=== PATIENT | female | born 1955 | race Caucasian/White ===

== ENCOUNTER 2019-11-04 12:22 | Inpatient (IN) | payer OTHER ==
[2019-11-04 13:11] LABS: Basophils % (A) 0 %; Eosinophils # (A) 0.2 k/uL (0-0.7); Eosinophils % (A) 4 %; HCT 40.8 % (34.0-46.0); HGB 14.2 gm/dL (11.4-16.0); Lymphocytes # (A) 1.9 k/uL (1.0-4.8); Lymphocytes % (A) 31 %; MCH 31.1 pg (25.0-35.0); MCHC 34.9 g/dL (31.0-37.0); MCV 89.3 fL (80.0-100.0); Monocytes # (A) 0.3 k/uL (0-1.0); Monocytes % (A) 6 %; Neutrophils # (A) 3.4 k/uL (1.3-7.7); Neutrophils % (A) 57 %; Platelet Count 243 k/uL (150-450); RBC 4.56 m/uL (3.80-5.40); RDW 13.1 % (11.5-15.5)
--- NOTE | 2019-11-04 13:13 | XR ---
EXAMINATION TYPE: XR forearm LT , 2 VIEWS DATE OF EXAM ORDERED: 11/04/2019 HISTORY: dog bite, infection. COMPARISON: None. FINDINGS: No fracture, dislocation or radiopaque foreign body is seen. IMPRESSION: NORMAL RADIUS AND ULNA.
--- NOTE | 2019-11-04 13:16 | ED ---
General Adult HPI - General Chief complaint: Recheck/Abnormal Lab/Rx Stated complaint: dog bite lt arm Time Seen by Provider: 11/04/19 12:33 Source: patient, RN notes reviewed Mode of arrival: ambulatory Limitations: no limitations - History of Present Illness Initial comments: This a 64-year-old female presents emergency Department with chief complaint of left forearm infection. Patient states she was bit by her dog on Wednesday was seen in emergency department was placed on clindamycin and doxycycline. Patient states she had it washed out. Patient is up-to-date on his tetanus, vaccinated. Patient states that 2 other areas have been improving though there is a larger wound just distal to her left elbow which has been increasing pain, swelling or redness. She states his been diffuse drainage from the site. She's had fevers and off. Patient states that she also has been applying Neosporin to the area. - Related Data Allergies Allergy/AdvReac Type Severity Reaction Status Date / Time Penicillins Allergy Rash/Hives Verified 11/04/19 12:31 Review of Systems ROS Statement: Those systems with pertinent positive or pertinent negative responses have been documented in the HPI. ROS Other: All systems not noted in ROS Statement are negative. Past Medical History Past Medical History: No Reported History History of Any Multi-Drug Resistant Organisms: None Reported Past Surgical History: Appendectomy, Cholecystectomy Past Psychological History: No Psychological Hx Reported Smoking Status: Never smoker Past Alcohol Use History: Occasional Past Drug Use History: None Reported General Exam Limitations: no limitations General appearance: alert, in no apparent distress Head exam: Present: atraumatic, normocephalic, normal inspection Eye exam: Present: normal appearance, PERRL, EOMI. Absent: scleral icterus, co njunctival injection, periorbital swelling Respiratory exam: Present: normal lung sounds bilaterally. Absent: respiratory distress, wheezes, rales, rhonchi, stridor Cardiovascular Exam: Present: regular rate, normal rhythm, normal heart sounds. Absent: systolic murmur, diastolic murmur, rubs, gallop, clicks Extremities exam: Present: other (Left arm just distal to the elbow there is approximately a 2 cm open wound with surrounding 6 cm area of erythema, severe times with palpation there is no pain or swelling proximal to the left elbow, there are 2 healing wounds noted with some ecchymosis radial pulses equal bilate rally) Neurological exam: Present: alert, oriented X3 Skin exam: Present: warm, dry, intact, normal color. Absent: rash Course Vital Signs 11/04/19 12:24 Temperature 98.7 F Pulse Rate 75 Respiratory 18 Rate Blood Pressure 131/74 O2 Sat by Pulse 97 Oximetry Medical Decision Making - Medical Decision Making This a 64-year-old female presented for left arm and by infection. The symptoms are worsening even after clindamycin and doxycycline Patient will be admitted for IV antibiotics and further management. - Lab Data Result diagrams: 11/04/19 12:58 11/04/19 12:58 Lab Results 11/04/19 11/04/19 11/04/19 Range/Units 12:58 12:58 12:58 WBC 6.0 (3.8-10.6) k/uL RBC 4.56 (3.80-5.40) m/uL Hgb 14.2 (11.4-16.0) gm/dL Hct 40.8 (34.0-46.0) % MCV 89.3 (80.0-100.0) fL MCH 31.1 (25.0-35.0) pg MCHC 34.9 (31.0-37.0) g/dL RDW 13.1 (11.5-15.5) % Plt Count 243 (150-450) k/uL Neutrophils % 57 % Lymphocytes % 31 % Monocytes % 6 % Eosinophils % 4 % Basophils % 0 % Neutrophils # 3.4 (1.3-7.7) k/uL Lymphocytes # 1.9 (1.0-4.8) k/uL Monocytes # 0.3 (0-1.0) k/uL Eosinophils # 0.2 (0-0.7) k/uL Basophils # 0.0 (0-0.2) k/uL Sodium 139 (137-145) mmol/L Potassium 4.2 (3.5-5.1) mmol/L Chloride 107 (98-107) mmol/L Carbon Dioxide 23 (22-30) mmol/L Anion Gap 9 mmol/L BUN 18 H (7-17) mg/dL Creatinine 0.91 (0.52-1.04) mg/dL Est GFR (CKD-EPI)AfAm 78 (>60 ml/min/1.73 sqM) Est GFR (CKD-EPI)NonAf 67 (>60 ml/min/1.73 sqM) Glucose 107 H (74-99) mg/dL Plasma Lactic Acid Olegario 1.3 (0.7-2.0) mmol/L Calcium 9.5 (8.4-10.2) mg/dL Total Bilirubin 0.6 (0.2-1.3) mg/dL AST 20 (14-36) U/L ALT 16 (4-34) U/L Alkaline Phosphatase 68 (38-126) U/L Total Protein 7.7 (6.3-8.2) g/dL Albumin 4.0 (3.5-5.0) g/dL Disposition Clinical Impression: Dog bite of left forearm with infection, Failure of outpatient treatment Disposition: ADMITTED IP TO THIS HOSP Condition: Fair Referrals: None,Stated [Primary Care Provider] - 1-2 days
[2019-11-04 13:19] LABS: Calcium 9.5 mg/dL (8.4-10.2); Potassium 4.2 mmol/L (3.5-5.1); Total Bilirubin 0.6 mg/dL (0.2-1.3); Total Protein 7.7 g/dL (6.3-8.2)
[2019-11-04] MEDS ORDERED: metroNIDAZOLE-NS PMX 500 MG in SALINE 1 100ML.BAG IVPB STA (13:54)
[2019-11-04] MEDS ORDERED: NALOXONE 0.4 MG/ML 1 ML VIAL IV PRN (13:55)
[2019-11-04] MEDS ORDERED: HYDROcodone/APAP 5-325MG 1 EACH TAB PO PRN (13:55)
[2019-11-04] MEDS ORDERED: ACETAMINOPHEN TAB 325 MG TAB PO PRN (13:55)
[2019-11-04] MEDS: SODIUM CHLORIDE 0.9% 1,000 ML IV SCH (14:40)
[2019-11-04] MEDS ORDERED: TEMAZEPAM 15 MG CAP PO PRN (17:43)
[2019-11-04] MEDS ORDERED: ALPRAZolam 0.25 MG TAB PO PRN (17:43)
[2019-11-04] MEDS ORDERED: HYDROmorphone 0.5 MG/0.5 ML SYRINGE IVP PRN (17:43)
[2019-11-04] MEDS ORDERED: CLOBETASOL PROP 0.05% CR 15GM TOPICAL SCH (17:45)
--- NOTE | 2019-11-04 19:23 | HP ---
HISTORY AND PHYSICAL DATE OF SERVICE: 11/04/2019 CHIEF COMPLAINTS: Pain and swelling of the left forearm and dog bite. HISTORY OF PRESENT ILLNESS: This 64-year-old woman with a past medical history of multiple medical problems including history of appendectomy, cholecystectomy, being followed by primary physician in [place], visiting family here. The patient apparently was trying to feed her dog and another dog jumped and bit her left forearm on multiple occasions. The patient went urgent care center. The patient apparently had multiple p.o. medications including clindamycin, doxycycline. Because of lack of improvement, the patient came yesterday and the patient admitted further evaluation and treatment. There is no history of fever, rigors. No headache, loss of consciousness or seizures. PAST MEDICAL HISTORY: Appendectomy, cholecystectomy. HOME MEDICATION: 1. Clindamycin 300 mg p.o. b.i.d. 2. Calcium 600 mg daily. 3. Temovate 1 p.r.n. 4. Multivitamins 1 p.o. daily. 5. Doxycycline 100 mg p.o. b.i.d. ALLERGIES: KIWI, PENICILLIN, rashes. FAMILY HISTORY: History of diabetes in the family. SOCIAL HISTORY: No history of smoking. Occasional alcohol. REVIEW OF SYSTEMS: ENT: No diminished vision. No diminished hearing. CARDIOVASCULAR: No angina or palpitations. RESPIRATIONS: No cough or hemoptysis. GI no nausea or vomiting. no dysuria or hematuria. NERVOUS SYSTEM: No numbness or weakness. ALLERGY/IMMUNOLOGY: No asthma or hayfever. MUSCULOSKELETAL as mentioned earlier. HEMATOLOGY/ONCOLOGY: No history of anemia. ENDOCRINE: No history of diabetes or hypothyroidism. CONSTITUTIONAL: As mentioned earlier. DERMATOLOGY mentioned earlier. RHEUMATOLOGY: Negative. PSYCHIATRY: As mentioned earlier. PHYSICAL EXAM: Patient alert and oriented x3. The pulse is 72. Blood pressure 121/77, respiration 18, temperature 99 degrees, pulse ox 97% on room air. HEENT: Conjunctivae normal. Oral mucosa moist. NECK is no jugular venous distention. No carotid bruit. No lymph node enlargement. CARDIOVASCULAR system: S1, S2. No S3, no S4. RESPIRATORY: Breath sounds diminished in the bases. No rhonchi. No crackles. ABDOMEN: Soft. Nontender. LEGS: No edema. No swelling. NERVOUS SYSTEM: Higher functions as mentioned earlier. Moves all four limbs. No focal motor or sensory deficits. Lymphatics: No lymph nodes palpable in the neck, axillae or groin. SKIN: Left forearm has significant dog bite areas and erythema and as well as some induration in the left upper forearm present. JOINTS: No active deforming arthropathy. LABS: CBC within normal limits and glucose 107. ASSESSMENT: 1. Left-sided dog bite with acute cellulitis with failure of outpatient treatment and rule out abscess in the left forearm. 2. History of appendectomy. 3. History of cholecystectomy. 4. FULL CODE. RECOMMENDATIONS AND DISCUSSION: In this 64-year-old woman who presented with multiple complex medical issues, at this time I recommend to continue the current management and continue the IV antibiotics. Infectious disease evaluation. Recommend orthopedic evaluation and I would also recommend a CT scan to rule out the possibility of any abscess formation in the forearm area. Continue to monitor. Resume the home medications. DVT prophylaxis. Pain medications. Further recommendations to follow. MMODL / IJN: [id number] /
[2019-11-04] MEDS: KETOROLAC 30 MG/ML 1 ML VIAL IVP PRN (21:29)
[2019-11-04] MEDS: HEPARIN SODIUM,PORCINE 5,000 UNIT/ML 1 ML VIAL SQ SCH (21:30)
[2019-11-05] MEDS: metroNIDAZOLE-NS PMX 500 MG in SALINE 1 100ML.BAG IVPB SCH ×4 (00:46→23:56)
[2019-11-05] MEDS: SODIUM CHLORIDE 0.9% 1,000 ML IV SCH ×2 (05:33→16:20)
[2019-11-05 06:31] LABS: Basophils % (A) 1 %; Eosinophils # (A) 0.3 k/uL (0-0.7); Eosinophils % (A) 7 %; HCT 37.6 % (34.0-46.0); HGB 12.8 gm/dL (11.4-16.0); Lymphocytes % (A) 44 %; MCH 30.8 pg (25.0-35.0); MCHC 34.1 g/dL (31.0-37.0); MCV 90.4 fL (80.0-100.0); Mean Platelet Volume 7.3; Monocytes # (A) 0.3 k/uL (0-1.0); Monocytes % (A) 6 %; Neutrophils # (A) 1.7 k/uL (1.3-7.7); Neutrophils % (A) 39 %; Platelet Count 207 k/uL (150-450); RBC 4.15 m/uL (3.80-5.40); WBC 4.4 k/uL (3.8-10.6)
[2019-11-05] MEDS: HEPARIN SODIUM,PORCINE 5,000 UNIT/ML 1 ML VIAL SQ SCH ×2 (08:26→21:39)
[2019-11-05] MEDS: CALCIUM CARB-VIT D 500MG-200UN 1 EACH TAB PO SCH (08:27)
[2019-11-05] MEDS: KETOROLAC 30 MG/ML 1 ML VIAL IVP PRN ×2 (08:43→23:55)
[2019-11-05] MEDS: VIT A,C & E-LUTEIN-MINERALS 1 EACH TAB PO SCH (09:41)
--- NOTE | 2019-11-05 11:04 | P.CNOR ---
History of Present Illness - [facility] Consult date: 11/05/19 History of present illness: This patient is a 64-year-old female who is otherwise healthy that presented to [facility] emergency department on 11/04/19 with complaints of forearm swelling and pain. Patient states that she sustained a dog bite on Wednesday. She states it was her own dog and the dog bit her while she was feeding him. She states following the bite, she presented to the emergency department that night for evaluation. The patient lives in [place] and went to a hospital there. Patient states she was placed on clindamycin and doxycycline, her tetanus was also updated. The patient states she traveled to [place], and she began to experience increased swelling, redness, pain, and drainage from the left forearm wound. She was also experiencing intermittent fevers. Therefore, she presented to [facility] emergency department yesterday for evaluation. The patient was admitted under the care of internal medicine with a consult placed to orthopedic surgery and infectious disease. At the time of my exam, the patient states the pain in her left forearm has improved drastically overnight since being started on IV antibiotics. She states she is experiencing very minimal pain in the left elbow and forearm today. She complains of no pain with elbow motion or wrist motion. She states she was experiencing increased drainage from the wound last night. She overall is feeling very well this morning. She denies fevers, chills, nausea, vomiting. She denies numbness or tingling of the left upper extremity. Vital signs stable. Past Medical History Past Medical History: No Reported History History of Any Multi-Drug Resistant Organisms: None Reported Past Surgical History: Appendectomy, Cholecystectomy Additional Past Anesthesia/Blood Transfusion Reaction / Comm: NO HX Past Psychological History: No Psychological Hx Reported Smoking Status: Never smoker Past Alcohol Use History: Occasional Past Drug Use History: None Reported - Past Family History Father History Unknown: Yes Family Medical History: Diabetes Mellitus Mother Family Medical History: Hypertension Medications and Allergies Home Medications Medication Instructions Recorded Confirmed Type C,E,Zinc,Copper 11/Gdwdz7v/Lut 1 tab PO DAILY 11/04/19 11/04/19 History [Ocuvite Adult 50 Plus Softgel] Calcium Carbonate [Calcium] 600 mg PO DAILY 11/04/19 11/04/19 History Clindamycin HCl [Cleocin] 300 mg PO BID 11/04/19 11/04/19 History Clobetasol Propionate [Temovate 1 applic TOPICAL DIRECTED 11/04/19 11/04/19 History 0.05% Cream] Doxycycline Hyclate 100 mg PO BID 11/04/19 11/04/19 History Allergies Allergy/AdvReac Type Severity Reaction Status Date / Time kiwi Allergy Swelling Verified 11/04/19 16:24 Penicillins Allergy Rash/Hives Verified 11/04/19 15:57 Physical Examination On examination, the patient is sitting up in bed in no apparent distress. She is alert and oriented 3. Her head appears normocephalic and atraumatic. Her breathing appears nonlabored. A focused examination of the left forearm was conducted. On inspection of the left forearm there is a 2 cm laceration over the anterolateral forearm with a small amount of serous drainage, with surrou nding erythema that has regressed within the area of demarcation. There is minimal pain on palpation of his area. There are no area of fluctuance or obvious fluid collections. There are two additional small lacerations to the posterior forearm that appear to be healing well with no drainage or surrounding erythema. No pain on palpation of the left shoulder, arm, elbow, wrist, or hand. No pain with PROM of the elbow or wrist, or fingers. Motor and sensory function appear intact of the left upper extremity. Radial pulse +2. Left upper extremity warm and well perfused with brisk capillary refill distally. Results Forearm x-rays 11/04/19: No acute fracture or foreign body seen. - Labs Labs: Abnormal Lab Results - Last 24 Hours (Table) 11/04/19 Range/Units 12:58 BUN 18 H (7-17) mg/dL Glucose 107 H (74-99) mg/dL H & H 11/04/19 11/05/19 Range/Units 12:58 05:47 Hgb 14.2 12.8 (11.4-16.0) gm/dL Hct 40.8 37.6 (34.0-46.0) % Result Diagrams: 11/05/19 05:47 11/04/19 12:58 Assessment and Plan Assessment: Dog bite with surrounding cellulitis, left forearm Plan: - I discussed the clinical and imaging findings with the patient. I discussed the patient with Dr. Hughes. Patient is improving clinically on IV antibiotics, no surgical intervention is planned at this time. - A wound culture was obtained bedside, which was sent to the lab. We will follow results closely. - Recommended warm water soaks TID to the left forearm laceration, if possible. - Continue IV antibiotics under the discretion of Dr. Sharpe. - We will continue to follow patient very closely and make recommendations as needed.
--- NOTE | 2019-11-05 13:14 | CT ---
EXAMINATION TYPE: CT forearm LT wo/w con DATE OF EXAM: 11/05/2019 COMPARISON: HISTORY: infected dog bite at elbow CT DLP: 428.5 mGycm Automated exposure control for dose reduction was used. CONTRAST: Performed without and with IV Contrast, patient injected with 100 mL of Isovue 300. FINDINGS: There is inflammatory change involving the posterior aspect of the left elbow and extending down the forearm along the course of the ulna. No bubbles of air or drainable abscess collections ar e seen. No bony fracture or destructive lesion is seen. No radiopaque foreign body IMPRESSION: FINDINGS CONSISTENT WITH CELLULITIS WITHOUT A DRAINABLE ABSCESS.
--- NOTE | 2019-11-06 00:42 | P.CONS ---
History of Present Illness - Reason for Consult Consult date: 11/05/19 Left forearm dog bite cellulitis Requesting physician: Jasiel Green - Chief Complaint Left forearm pain swelling and redness 2 days - History of Present Illness Patient is 64-year-old female with a history of dog bite to the left forearm on Wednesday that is 4 days prior to presentation to the hospital it was felt that dog while trying to take another dog and she got in the middle biting her on her left forearm patient multiple laceration to the left forearm patient was seen in the ER same day and did have a washout of the area and the patient has been treated with clindamycin and doxycycline because of her penicillin ALLERGY patient is now presented back to the hospital. She complains of worsening pain swelling and redness to the left forearm especially on the dorsum patient describing the pain to be throbbing intensity about 5-6 out of 10 and no radiation she did have slight drainage from it did have some low-grade fever with these symptoms the patient has been evaluated by the ER physician on arrival to the ER the patient has been afebrile and white count has been normal x-rays of the left forearm did not show any bony changes patient has been started on Rocephin and Flagyl admitted to the hospital infectious disease was consulted for further management of antibiotic therapy, patient did have a CT of the left forearm did not show any drainable abscess Review of Systems Positive point has been mentioned in the HPI rest of the systems are negative Past Medical History Past Medical History: No Reported History History of Any Multi-Drug Resistant Organisms: None Reported Past Surgical History: Appendectomy, Cholecystectomy Additional Past Anesthesia/Blood Transfusion Reaction / Comm: NO HX Past Psychological History: No Psychological Hx Reported Smoking Status: Never smoker Past Alcohol Use History: Occasional Past Drug Use History: None Reported - Past Family History Father History Unknown: Yes Family Medical History: Diabetes Mellitus Mother Family Medical History: Hypertension Medications and Allergies Home Medications Medication Instructions Recorded Confirmed Type C,E,Zinc,Copper 11/Xgddn8c/Lut 1 tab PO DAILY 11/04/19 11/04/19 History [Ocuvite Adult 50 Plus Softgel] Calcium Carbonate [Calcium] 600 mg PO DAILY 11/04/19 11/04/19 History Clindamycin HCl [Cleocin] 300 mg PO BID 11/04/19 11/04/19 History Clobetasol Propionate [Temovate 1 applic TOPICAL DIRECTED 11/04/19 11/04/19 History 0.05% Cream] Doxycycline Hyclate 100 mg PO BID 11/04/19 11/04/19 History Allergies Allergy/AdvReac Type Severity Reaction Status Date / Time kiwi Allergy Swelling Verified 11/04/19 16:24 Penicillins Allergy Rash/Hives Verified 11/04/19 15:57 Physical Exam Vitals: Vital Signs Temp Pulse Resp BP Pulse Ox 11/05/19 08:28 97.9 F 68 18 135/82 97 11/04/19 23:00 98.7 F 64 18 131/64 97 11/04/19 20:00 98.2 F 69 18 125/75 97 Intake and Output 11/05/19 11/05/19 11/05/19 06:59 14:59 22:59 Intake Total 480 1200 Balance 480 1200 Intake: Oral 480 1200 Other: # Voids 2 GENERAL DESCRIPTION: Middle-aged female lying in bed, no distress. No tachypnea or accessory muscle of respiration use. HEENT: Shows Pallor , no scleral icterus. Oral mucous membrane is dry. No pharyngeal erythema or thrush NECK: Trachea central, no thyromegaly. LUNGS: Unlabored breathing. Clear to auscultation anteriorly. No wheeze or crackle. HEART: S1, S2, regular rate and rhythm. No loud murmur ABDOMEN: Soft, no tenderness , guarding or rigidity, no organomegaly EXTREMITIES: Left forearm with a laceration on the dorsum aspect distal to the elbow with no slough tissue with surrounding swelling redness or foul-smelling drainage SKIN: No rash, no masses palpable. NEUROLOGICAL: The patient is awake, alert, oriented x3, mood and affect normal. Results CBC & Chem 7: 11/05/19 05:47 11/04/19 12:58 Assessment and Plan Assessment: 1- patient with left forearm dog bite cellulitis failing outpatient oral clindamycin and doxycycline therapy which is usually not an adequate antibiotic coverage for the gram-negative oral ej of the dog leading to failure of antibiotic Therapy 2-patient with penicillin ALLERGY that would limit the number of antibiotic safety use (1) Penicillin allergy Current Visit: Yes Status: Acute Code(s): Z88.0 - ALLERGY STATUS TO PENICILLIN SNOMED Code(s): 10034044 (2) Dog bite of left forearm with infection Current Visit: Yes Status: Acute Code(s): S51.852A - OPEN BITE OF LEFT FOREARM, INITIAL ENCOUNTER; L08.9 - LOCAL INFECTION OF THE SKIN AND SUBCUTANEOUS TISSUE, UNSP; W54.0XXA - BITTEN BY DOG, INITIAL ENCOUNTER SNOMED Code(s): 683083556 (3) Failure of outpatient treatment Current Visit: Yes Status: Acute Code(s): Z78.9 - OTHER SPECIFIED HEALTH STATUS SNOMED Code(s): 951233547 Plan: 1-we will increase the dose of Rocephin 2 g daily and continue with the Flagyl 2-[place] the area of the redness 3-dry protective dressing to the area of laceration We will follow on clinical condition and cultures to further adjust medication if needed Thank you for this consultation will follow this patient with you
--- NOTE | 2019-11-06 03:18 | PN ---
PROGRESS NOTE DATE OF SERVICE: 11/05/2019 This 64-year-old woman who was admitted with multiple dog bites on the left arm is closely monitored. A forearm CT scan was done which showed cellulitis without any drainable abscess. No chest pain. No palpitations. No fever. PHYSICAL EXAMINATION: Alert and oriented x3. Pulse is 71, blood pressure 143/83, respiration 18, temperature 97.8, pulse ox 99% on room air. HEENT: Conjunctivae normal. NECK; No jugular venous distention. CARDIOVASCULAR: S1, S2 muffled. RESPIRATORY: Breath sounds diminished at the bases. No rhonchi, no crackles. ABDOMEN: Soft, nontender. LEGS: No edema, no swelling. NERVOUS SYSTEM: No focal deficits. LABS: CBC within normal limits. Glucose 107. ASSESSMENT: 1. Left-sided dog bite with acute cellulitis with failure of outpatient. No evidence of abscess on the CT scan. 2. History of appendectomy. 3. History of cholecystectomy. 4. FULL CODE. RECOMMENDATIONS AND DISCUSSION: Recommend to continue current medications, continue symptomatic treatment. Otherwise at this time, I recommend continue the broad-spectrum IV antibiotics. I also recommend infectious disease evaluation. Guarded prognosis. Further recommendations to follow. MMODL / IJN: [id number] /
[2019-11-06] MEDS: KETOROLAC 30 MG/ML 1 ML VIAL IVP PRN ×2 (06:30→16:18)
[2019-11-06] MEDS: ONDANSETRON 4 MG/2 ML VIAL IVP PRN (07:03)
[2019-11-06 07:51] LABS: Basophils # (A) 0.1 k/uL (0-0.2); Basophils % (A) 1 %; Eosinophils # (A) 0.4 k/uL (0-0.7); Eosinophils % (A) 8 %; HGB 14.3 gm/dL (11.4-16.0); Lymphocytes # (A) 1.8 k/uL (1.0-4.8); Lymphocytes % (A) 38 %; MCH 29.5 pg (25.0-35.0); MCHC 32.5 g/dL (31.0-37.0); MCV 90.7 fL (80.0-100.0); Mean Platelet Volume 7.2; Monocytes # (A) 0.3 k/uL (0-1.0); Monocytes % (A) 6 %; Neutrophils # (A) 2.2 k/uL (1.3-7.7); Neutrophils % (A) 46 %; Platelet Count 246 k/uL (150-450); RBC 4.85 m/uL (3.80-5.40); RDW 13.1 % (11.5-15.5); WBC 4.7 k/uL (3.8-10.6)
[2019-11-06] MEDS: metroNIDAZOLE-NS PMX 500 MG in SALINE 1 100ML.BAG IVPB SCH ×2 (08:37→16:18)
[2019-11-06] MEDS: VIT A,C & E-LUTEIN-MINERALS 1 EACH TAB PO SCH (09:38)
[2019-11-06] MEDS: HEPARIN SODIUM,PORCINE 5,000 UNIT/ML 1 ML VIAL SQ SCH ×2 (09:38→20:55)
[2019-11-06] MEDS: CALCIUM CARB-VIT D 500MG-200UN 1 EACH TAB PO SCH (09:38)
--- NOTE | 2019-11-06 16:06 | P.PN ---
Subjective Progress Note Date: 11/06/19 Principal diagnosis: This is a 64-year-old female who recently was admitted with multiple dog bites noted on the left forearm and is being closely monitored. Failed outpatient the rapy. Infectious disease is following and patient is maintained on IV antibiotics in the form of ceftriaxone and Flagyl and will continue at this time. Patient to continue with oral antibiotics upon discharge. Patient states her pain is much improved and denies any numbness or tingling to the left lower extremity. Erythema on swelling slightly improved from yesterday. Currently no reports of chest pain, shortness of breath, or palpitations. Patient is afebrile. No reports of vomiting but having intermittent nausea that is being controlled with Zofran. She is tolerating diet. Review of systems: Constitutional: No reports of fever or chills Cardiovascular: No reports of chest pain or palpitations Respiratory: No reports of shortness of breath or cough GI: Reports occasional nausea, no reports of vomiting or diarrhea : No reports of dysuria or retention Neurovascular: No reports of weakness or numbness Active Medications Acetaminophen (Tylenol Tab) 650 mg PO Q6HR PRN PRN Reason: Mild Pain or Fever > 100.5 Hydrocodone Bitart/Acetaminophen ([place] 5-325) 1 each PO Q4HR PRN PRN Reason: Moderate Pain Alprazolam (Xanax) 0.25 mg PO TID PRN PRN Reason: Anxiety Calcium Carbonate (Oscal 500+D) 1 each PO DAILY [facility] Last Admin: 11/06/19 09:38 Dose: 1 each Documented by: Heparin Sodium (Porcine) (Heparin) 5,000 unit SQ Q12HR [facility] Last Admin: 11/06/19 09:38 Dose: 5,000 unit Documented by: Hydromorphone HCl (Dilaudid) 0.5 mg IVP Q6HR PRN PRN Reason: Severe Pain Metronidazole 500 mg/ IV (Solution) 100 mls @ 100 mls/hr IVPB Q8HR [facility] Last Admin: 11/06/19 08:37 Dose: 100 mls/hr Documented by: Sodium Chloride (Saline 0.9%) 1,000 mls @ 75 mls/hr IV .[id number] [facility] Last Admin: 11/05/19 16:20 Dose: 75 mls/hr Documented by: Ceftriaxone Sodium 2 gm/ (Sodium Chloride) 50 mls @ 100 mls/hr IVPB Q24HR [facility] Last Admin: 11/06/19 09:38 Dose: 100 mls/hr Documented by: Ketorolac Tromethamine (Toradol) 30 mg IVP Q6HR PRN PRN Reason: Moderate Pain Stop: 11/09/19 13:56 Last Admin: 11/06/19 06:30 Dose: 30 mg Documented by: Multivitamins/Minerals (Ivite) 1 each PO DAILY [facility] Last Admin: 11/06/19 09:38 Dose: 1 each Documented by: Naloxone HCl (Narcan) 0.2 mg IV Q2M PRN PRN Reason: Opioid Reversal Ondansetron HCl (Zofran) 4 mg IVP Q8HR PRN PRN Reason: Nausea And Vomiting Last Admin: 11/06/19 07:03 Dose: 4 mg Documented by: Temazepam (Restoril) 15 mg PO HS PRN PRN Reason: Insomnia Objective - Vital Signs Vital signs: Vital Signs Temp 98.1 F 11/06/19 09:06 Pulse 77 11/06/19 09:06 Resp 18 11/06/19 09:06 BP 135/70 11/06/19 09:06 Pulse Ox 97 11/06/19 09:06 Intake & Output 11/05/19 11/06/19 11/06/19 18:59 06:59 18:59 Intake Total 1200 1160 1000 Balance 1200 1160 1000 Intake: Intake, IV Titration 500 Amount Sodium Chloride 0.9% 1, 500 000 ml @ 75 mls/hr IV . [id number] [facility] Rx#:[id number] Oral 1200 1160 500 Other: # Voids 2 1 - Exam Gen: This is a 64-year-old female sitting up in bed, awake, alert and oriented 3, well-developed, well-nourished. Temp is 98.1F, pulse is 77, respirations are 18, blood pressure is 135/70, oxygen saturation is 97% on room air. HEENT: Head is atraumatic, normocephalic. Pupils equal, round. Sclerae is anicteric. NECK: Supple. No JVD. No lymphadenopathy. No thyromegaly. LUNGS: Manage breath sounds bilaterally with no wheezes or rhonchi noted. No intercostal retractions. HEART: S1, S2 are present ABDOMEN: Soft. Bowel sounds are present. No masses. No tenderness. EXTREMITIES: No pedal edema. No calf tenderness. Left forearm erythema and swelling noted with slight improvement with an open wound status post dog bite NEUROLOGICAL: Patient is awake, alert and oriented x3. Cranial nerves 2 through 12 are grossly intact. - Labs CBC & Chem 7: 11/06/19 07:17 11/04/19 12:58 Labs: Microbiology - Last 24 Hours (Table) 11/04/19 12:58 Blood Culture - Preliminary Blood No Growth after 48 hours 11/05/19 09:15 Gram Stain - Preliminary Arm - Left Wound Culture - Preliminary Assessment and Plan Assessment: Left-sided forearm dog bite with acute cellulitis with failure of outpatient therapy. No evidence of abscess on the CT noted History of appendectomy History of cholecystectomy Full code Recommendations and discussion: Recommend to continue current medications, management, and symptomatic treatment. Patient is maintained on IV antibiotics in the form of ceftriaxone and Flagyl and will continue at this time. Infectious disease is following. CT of the forearm done showing no abscess noted. Prognosis is guarded. Further recommendations to follow. Possible discharge in 24 hours.
--- NOTE | 2019-11-06 18:56 | P.PN ---
Subjective Progress Note Date: 11/06/19 This patient is a 64-year-old female who is otherwise healthy that presented to [facility] emergency department on 11/04/19 with complaints of forearm swelling and pain. Patient states that she sustained a dog bite on Wednesday. She states it was her own dog and the dog bit her while she was feeding him. She states following the bite, she presented to the emergency department that night for evaluation. The patient lives in [place] and went to a hospital there. Patient states she was placed on clindamycin and doxycycline, her tetanus was also updated. The patient states she traveled to [place], and she began to experience increased swelling, redness, pain, and drainage from the left forearm wound. She was also experiencing intermittent fevers. Therefore, she presented to [facility] emergency department yesterday for evaluation. The patient was admitted under the care of internal medicine with a consult placed to orthopedic surgery and infectious disease. At the time of my exam, the patient states the pain in her left forearm has improved drastically overnight since being started on IV antibiotics. She states she is experiencing very minimal pain in the left elbow and forearm today. She complains of no pain with elbow motion or wrist motion. She states she was experiencing increased drainage from the wound last night. She overall is feeling very well this morning. She denies fevers, chills, nausea, vomiting. She denies numbness or tingling of the left upper extremity. Vital signs stable. 11/06/19: Patient was seen and examined bedside today. The patient states she is feeling well and states the swelling in her left forearm has continued to decrease. Computed tomography scan of the left forearm from 11/05/19 shows no drainable abscess. Patient has no new complaints today. Vital signs stable. Objective - Vital Signs Vital signs: Vital Signs Temp 98.2 F 11/06/19 16:15 Pulse 78 11/06/19 16:15 Resp 16 11/06/19 16:15 BP 116/73 11/06/19 16:15 Pulse Ox 96 11/06/19 16:15 Intake & Output 11/05/19 11/06/19 11/06/19 18:59 06:59 18:59 Intake Total 1200 1160 1000 Balance 1200 1160 1000 Intake: Intake, IV Titration 500 Amount Sodium Chloride 0.9% 1, 500 000 ml @ 75 mls/hr IV . [id number] [facility] Rx#:[id number] Oral 1200 1160 500 Other: # Voids 2 1 - Exam On examination, the patient is sitting up in bed in no apparent distress. She is alert and oriented 3. On inspection of the left forearm there is a 2 cm laceration over the anterolateral forearm with no active drainage, with. Mild surrounding erythema that has continued to improve compared to yesterday. The forearm is not significantly warm. There is no pain on palpation of his area. There are no area of fluctuance or obvious fluid collections. There are two additional small lacerations to the posterior forearm that appear to be healing well with no drainage or surrounding erythema. No pain on palpation of the left shoulder, arm, elbow, wrist, or hand. No pain with PROM of the elbow or wrist, or fingers. Motor and sensory function appear intact of the left upper extremity. Radial pulse +2. Left upper extremity warm and well perfused with brisk capillary refill distally. - Labs CBC & Chem 7: 11/06/19 07:17 11/04/19 12:58 Labs: Microbiology - Last 24 Hours (Table) 11/04/19 12:58 Blood Culture - Preliminary Blood No Growth after 48 hours 11/05/19 09:15 Gram Stain - Preliminary Arm - Left Wound Culture - Preliminary Assessment and Plan Assessment: Dog bite with surrounding cellulitis, left forearm Computed tomography scan of left forearm on 11/05/2019 shows no evidence of a drainable abscess Plan: - I discussed the clinical and imaging findings with the patient. No surgical intervention planned. - Continue IV antibiotics and wound care under the discretion of Dr. Sharpe. - Orthopedics will sign off at this time. We will re-assess patient if needed.
[2019-11-06] MEDS: SODIUM CHLORIDE 0.9% 1,000 ML IV SCH ×2 (20:55→20:56)
--- NOTE | 2019-11-06 23:52 | PN ---
PROGRESS NOTE DATE OF SERVICE: 11/06/2019 REASON FOR FOLLOWUP: Left forearm dog bite cellulitis. INTERVAL HISTORY: Patient is currently afebrile. The patient is breathing comfortably. The left arm pain and discomfort has decreased. Denies having any chest pain, shortness of breath or cough. No abdominal pain or diarrhea. PHYSICAL EXAMINATION: Blood pressure 152/79 with a pulse of 85, temperature 98.5. She is 96% on room air. General description is a middle-aged female lying in bed in no distress. RESPIRATORY SYSTEM: Unlabored breathing, clear to auscultation anteriorly. HEART: S1, S2. Regular rate and rhythm. ABDOMEN: Soft. Left forearm swelling and redness has improved. DIAGNOSTIC IMPRESSION AND PLAN: Patient with left forearm dog bite cellulitis failing outpatient clindamycin and doxycycline therapy. The patient at this time to continue with Rocephin and Flagyl. Re- evaluate the area tomorrow discharge antibiotic more likely oral. Continue with supportive care. MMODL / IJN: [id number] /
[2019-11-07] MEDS: metroNIDAZOLE-NS PMX 500 MG in SALINE 1 100ML.BAG IVPB SCH ×2 (00:08→10:26)
[2019-11-07] MEDS: ONDANSETRON 4 MG/2 ML VIAL IVP PRN (05:47)
[2019-11-07 06:52] LABS: Basophils % (A) 1 %; Eosinophils # (A) 0.3 k/uL (0-0.7); Eosinophils % (A) 6 %; HCT 39.1 % (34.0-46.0); HGB 13.5 gm/dL (11.4-16.0); Lymphocytes # (A) 1.3 k/uL (1.0-4.8); Lymphocytes % (A) 31 %; MCHC 34.4 g/dL (31.0-37.0); Mean Platelet Volume 6.9; Monocytes # (A) 0.3 k/uL (0-1.0); Monocytes % (A) 7 %; Neutrophils # (A) 2.3 k/uL (1.3-7.7); Neutrophils % (A) 53 %; Platelet Count 203 k/uL (150-450); RBC 4.35 m/uL (3.80-5.40); RDW 13.1 % (11.5-15.5); WBC 4.3 k/uL (3.8-10.6)
[2019-11-07] MEDS: CALCIUM CARB-VIT D 500MG-200UN 1 EACH TAB PO SCH (09:51)
[2019-11-07] MEDS: VIT A,C & E-LUTEIN-MINERALS 1 EACH TAB PO SCH (09:51)
[2019-11-07] MEDS: SODIUM CHLORIDE 0.9% 1,000 ML IV SCH (09:53)
[2019-11-07] MEDS: HEPARIN SODIUM,PORCINE 5,000 UNIT/ML 1 ML VIAL SQ SCH (09:53)
[2019-11-07 09:59] VITALS: BP 130/80; PULSE 75; RESP 16; TEMP 97.9
--- NOTE | 2019-11-07 14:29 | PN ---
PROGRESS NOTE DATE OF SERVICE: 11/07/2019 REASON FOR FOLLOWUP: Left forearm dog bite cellulitis. INTERVAL HISTORY: Patient is currently afebrile. The patient is breathing comfortably. The patient denies having any chest pain or shortness of breath. No nausea or vomiting. No abdominal pain. Overall pain and discomfort to the left forearm has improved. PHYSICAL EXAMINATION: Blood pressure 130/80 with a pulse of 75. Temperature 97.9. She is 97% on room air. General description: Middle-aged female up in the bed in no distress. Respiratory system: Unlabored breathing. Clear to auscultation anteriorly. Heart S1, S2. Regular rate and rhythm. Abdomen: Soft. No tenderness. Left arm swelling and redness has improved. LABS: White count 4.3. Wound culture so far negative. DIAGNOSTIC IMPRESSION AND PLAN: Patient with left forearm dog bite cellulitis failing outpatient and doxepin therapy with overall improvement on Rocephin and Flagyl. Plan to finish therapy with oral Ceftin and Flagyl for another 10 days with close outpatient followup. Discussed with the nurse practitioner for admitting team. MMODL / IJN: [id number] /
--- NOTE | 2019-11-08 09:29 | P.DS ---
Providers Date of admission: 11/06/19 08:05 Expected date of discharge: 11/07/19 Attending physician: Jasiel Green Consults: 11/04/19 16:38 Consult Physician Routine Consulting Provider: Luis Hughes Consult Reason/Comments: DOG BITE LEFT FOREARM Do you want consulting provider notified?: Yes 11/04/19 16:40 Consult Physician Routine Consulting Provider: Andrei Sharpe Consult Reason/Comments: DOG BITE LEFT FOREARM -ANTIBIOTIC MANAGEMENT Do you want consulting provider notified?: Yes Primary care physician: Stated None Hospital Course: Final diagnosis Left-sided forearm dog bite with acute cellulitis with failure of outpatient therapy. No evidence of abscess on the CT noted History of appendectomy History of cholecystectomy Full code Discharge disposition Patient is being discharged in a stable condition with guarded prognosis to home. Patient will follow-up with her primary care provider in the outpatient setting on discharge. Patient will continue on a short course of oral antibiotics in the form of Flagyl 500 mg 3 times daily along with Ceftin 500 mg twice daily for the next 10 days and then may discontinue. Total time taken is greater than 35 minutes. History of present illness This is a 64-year-old female who was recently admitted with multiple dog bites noted on the left forearm failed outpatient therapy and was being closely monitored. Infectious disease was following. Patient states it was her own dog and is up-to-date on immunizations. She was trying to intervene and another dog coming at her dog's food and got caught in the mix. Erythema and swelling has markedly improved and patient would like to go home today. She was on IV antibiotics and will continue on oral Ceftin along with Flagyl for the next 10 days. Patient instructed to follow-up with her primary care provider upon discharge. Patient also instructed to continue keeping the area clean and lightly bandaged if there is a chance she will be working with the arm. Patient verbalized understanding. Currently no reports of chest pain, worsening shortness of breath, or palpitations. Patient is afebrile. No reports of nausea or vomiting and patient is tolerating diet. Patient will be discharged to home today. On exam vital signs are stable. Temp is 97.9F, pulse is 75, respirations are 16, blood pressure is 130/80, oxygen saturation is 97% on room air. Cardio S1, S2 are muffled. Respiratory system shows diminished breath sounds at the bases with no wheezing or rhonchi noted. Abdomen is soft and nontender. Nervous system shows no focal deficits. Please refer to medication reconciliation sheet for a list of medications. Patient Condition at Discharge: Fair Plan - Discharge Summary New Discharge Prescriptions: New Acetaminophen Tab [Tylenol] 650 mg PO Q6HR PRN tab PRN Reason: Mild Pain Or Fever > 100.5 Cefuroxime Axetil [Ceftin] 500 mg PO BID 10 Days #20 tab metroNIDAZOLE [Flagyl] 500 mg PO Q8HR 10 Days #30 tab Continue Calcium Carbonate [Calcium] 600 mg PO DAILY C,E,Zinc,Copper 11/Swjxy2x/Lut [Ocuvite Adult 50 Plus Softgel] 1 tab PO DAILY Clobetasol Propionate [Temovate 0.05% Cream] 1 applic TOPICAL DIRECTED Discontinued Clindamycin HCl [Cleocin] 300 mg PO BID Doxycycline Hyclate 100 mg PO BID Discharge Medication List C,E,Zinc,Copper 11/Hewgo2b/Lut [Ocuvite Adult 50 Plus Softgel] 1 tab PO DAILY 11/04/19 [History] Calcium Carbonate [Calcium] 600 mg PO DAILY 11/04/19 [History] Clobetasol Propionate [Temovate 0.05% Cream] 1 applic TOPICAL DIRECTED 11/04/19 [History] Acetaminophen Tab [Tylenol] 650 mg PO Q6HR PRN tab 11/07/19 [Rx] Cefuroxime Axetil [Ceftin] 500 mg PO BID 10 Days #20 tab 11/07/19 [Rx] metroNIDAZOLE [Flagyl] 500 mg PO Q8HR 10 Days #30 tab 11/07/19 [Rx] Follow up Appointment(s)/Referral(s): None,Stated [Primary Care Provider] - 1-2 days Patient Instructions/Handouts: Animal Bite (DC), Cellulitis (DC) Activity/Diet/Wound Care/Special Instructions: Activity Limited until follow-up Follow-up with primary care provider upon discharge Continue with current antibiotics until finished Continue current diet Discharge Disposition: HOME SELF-CARE
== END 2019-11-07 13:25 | disposition home or self-care (01) | DRG 603 ==
LOC: EC 12:22 → 4SSUR 14:07 → 6PED 15:04 → OBSVTOIN 11-06 08:05 → 6PED 11-06 15:19
PROVIDERS: ADMIT Hospitalist; ATTEND Hospitalist
DX: L03.114 Cellulitis of left upper limb (principal); S51.852A Open bite of left forearm, initial encounter; Z11.59 Encounter for screening for other viral diseases; Z88.0 Allergy status to penicillin; Z90.49 Acquired absence of other specified parts of digestive tract; Z83.3 Family history of diabetes mellitus; Z82.49 Family history of ischemic heart disease and other diseases of the circulatory system; Z91.018 Allergy to other foods; W54.0XXA Bitten by dog, initial encounter; Y93.9 Activity, unspecified
CPT/HCPCS: 36415; 80053; 83605; 85025; 87040; 87070; 87205; 99284